=== PATIENT | female | born 1995 | race Two or more races ===

== ENCOUNTER 2019-05-17 15:57 | Emergency (ER) | payer MEDICAID ==
[~2019-05-17] VITALS: Ht 162.6 cm; Wt 79.8 kg
[2019-05-17 16:18] VITALS: BP 110/51
[2019-05-17 16:48] LABS: Basophils # (auto) 0.1 uL; Basophils % (auto) 0.5 % (0.0-2.0); Eosinophils # (auto) 0.1 uL; Eosinophils % (auto) 0.8 % (0.0-7.0); Hematocrit 42.9 % (36.0-46.0); Hemoglobin 14.5 g/dL (12.2-16.2); Lymphocytes # (auto) 3.1 uL; Lymphocytes % (auto) 31.3 % (10.0-50.0); Mean Corpuscular Hemoglobin 31.9 pg (28.0-32.0); Mean Corpuscular Hgb Conc. 33.8 g/dL (32.0-36.0); Mean Corpuscular Volume 94.3 fL (80.0-100.0); Monocytes # (auto) 0.5 uL; Monocytes % (auto) 5.4 % (0.0-12.0); Neutrophils # (auto) 6.2 uL; Nucleated Red Blood Cells % 0.1 %; Platelet Count (auto) 286 10^3/uL (140-450); Red Blood Cells 4.55 10^6/uL (4.0-5.20); Red Cell Distribution Width 13.7 % (11.8-14.3)
[2019-05-17 17:08] LABS: Alanine Aminotransferase 19 U/L (13-56); Albumin 3.7 g/dL (3.4-5.0); Anion Gap 6 (5-15); Aspartate Aminotransferase 13 U/L (15-37); BUN/Creatinine Ratio 16.9; Blood Urea Nitrogen 12 mg/dL (7-18); Calcium 8.8 mg/dL (8.5-10.1); Carbon Dioxide 26 mmol/L (21-32); Chloride 108 mmol/L (98-107); GFR African American 130 mL/min; GFR Non-African American 107 mL/min; Glucose 97 mg/dL (74-106); Potassium 3.8 mmol/L (3.5-5.1); Sodium 140 mmol/L (136-145)
[2019-05-17 17:12] LABS: Alkaline Phosphatase 74 U/L (45-117); Bilirubin, Total 0.2 mg/dL (0.2-1.0); Total Protein 7.7 g/dL (6.4-8.2)
== END 2019-05-17 19:21 | disposition home or self-care (01) ==
LOC: ER 16:09
DX: N61.1 Abscess of the breast and nipple (principal)
CPT/HCPCS: 36415; 80053; 84484; 85025; 93005

== ENCOUNTER 2020-11-03 12:14 | Emergency (ER) | payer MEDICAID ==
[~2020-11-03] VITALS: Ht 157.5 cm; Wt 81.6 kg
[2020-11-03 12:30] VITALS: BP 118/53
== END 2020-11-03 15:00 | disposition left against medical advice (07) ==
LOC: ER 12:14
DX: S61.511A Laceration without foreign body of right wrist, initial encounter (principal); Z53.21 Procedure and treatment not carried out due to patient leaving prior to being seen by health care provider; W26.9XXA Contact with unspecified sharp object(s), initial encounter; Y93.89 Activity, other specified; Y92.89 Other specified places as the place of occurrence of the external cause; Y99.8 Other external cause status

== ENCOUNTER 2021-03-25 20:56 | Emergency (ER) | payer MEDICAID ==
[~2021-03-25] VITALS: Ht 165.1 cm; Wt 72.6 kg
[2021-03-25 21:24] VITALS: BP 138/70
== END 2021-03-26 00:48 | disposition left against medical advice (07) ==
LOC: ER 20:56 → EDBD 20:56 → ER 03-26 00:42
DX: M54.2 Cervicalgia (principal); M54.50 Low back pain, unspecified; M25.512 Pain in left shoulder; M25.532 Pain in left wrist; Z53.21 Procedure and treatment not carried out due to patient leaving prior to being seen by health care provider; V49.9XXA Car occupant (driver) (passenger) injured in unspecified traffic accident, initial encounter; Y93.89 Activity, other specified; Y92.89 Other specified places as the place of occurrence of the external cause; Y99.8 Other external cause status
CPT/HCPCS: 72125; 72131; 73030; 73110

== ENCOUNTER 2025-03-20 16:26 | Observation (INO) | payer MEDICAID ==
[~2025-03-20] VITALS: Ht 162.6 cm; Wt 98.4 kg
[2025-03-20] MEDS ORDERED: PREN-96 PO (16:48)
--- NOTE | 2025-03-20 18:05 | DVH ---
OB ULTRASOUND <14 WEEKS: HISTORY: cramping TECHNIQUE: Multiple real-time grayscale sonographic images of the pelvis with duplex Doppler color f low, spectral and M-mode analysis. TRANSDUCERS: Transabdominal FINDINGS: The cervix 3.3 cm heart rate detected at 127 beats per minute. Amniotic fluid 15.91 cm Placenta anterior no placenta previa or abruption presentation cephalic IMPRESSION: 1. Cervix 3.3 cm in length and closed. 2. FHR: 127 bpm 3. presentation cephalic 4. Placenta anterior and there is no findings of abruption or placenta previa 5. Good movement No acute abnormality detected.
[2025-03-20 18:10] LABS: Urine Protein, UAD TRACE (Negative)
[2025-03-20 18:20] LABS: Vaginal Bacteria Few; Vaginal Clue Cells None Seen; Vaginal Epithelial Cells Moderate; Vaginal Trichomonas Not Present
[2025-03-20] MEDS: TERBUTALINE SULFATE 1 MG/ML 1ML VIAL SC PRN (18:33)
[2025-03-20] MEDS: LACTATED RINGER'S 1,000 ML IV ONE (18:33)
--- NOTE | 2025-03-20 19:37 | DVHDS2 ---
Physician Discharge Progress N Final Diagnosis: PTL Secondary Diagnosis: GDM, A1 Operations or Procedures: Operations or Procedures S: 29yo IUP@35.5wks presents to OB triage with c/o UCs and vaginal irritation. Denies UTI s/sx. Denies LOF/VB/BELL/vision changes/RUQ pain. Endorses +FM. PNC with Dr. Figueroa at [facility]. PNC complicated by GDM, A1. PMH denies PSH denies O: VSS NST reactive TOCO: regular UCs initially then after treatment no UCs, pt denies feeling UCs Treated with 1L LR IV bolus, terbutaline SQ x2 doses, procardia 10mg PO once Betamethasone IM given SVE by RN: 0/0/-3 Urine culture collected Laboratory Tests Test 03/20/25 17:00 03/20/25 17:10 03/20/25 18:43 Range/Units Urine Color Yellow Yellow Urine Clarity Turbid H Clear Urine pH 7.0 5.0-9.0 Urine Specific [place] 1.024 1.001-1.035 Urine Protein Trace H Negative Urine Ketones Negative Negative Urine Blood Negative Negative /uL Urine Nitrite Negative Negative Urine Bilirubin Negative Negative Urine Urobilinogen Normal Negative mg/dL Urine Leukocyte Esterase 1+ Negative /uL Urine RBC 8 0 - 4 /hpf Urine Microscopic WBC 7 H 0-5 /HPF Urine Squamous Epithelial Cells Few <5 /hpf Urine Bacteria Few H None Seen /hpf Urine Mucus Few None Seen Urine Glucose Normal Normal mg/dL Vaginal WBC (Wet Prep) Few Vaginal RBC (Wet Prep) Rare Vaginal Epithelial Cells (Wet Prep) Moderate Vaginal Bacteria (Wet Prep) Few Vaginal Trichomonas (Wet Prep) Not present Vaginal Yeast (Wet Prep) None seen Vaginal Clue Cells (Wet Prep) None seen POC Glucose 97 70-106 mg/dl Vital Signs Date Time Temp Pulse Resp B/P (MAP) Pulse Ox O2 Delivery O2 Flow Rate FiO2 03/20/25 19:50 120/64 A: 29yo IUP@35.5wks PTL GDM, A1 P: D/C home FKC/PTL/PreE precautions reviewed f/u in 1 day for second dose of betamethasone Dr. Figueroa consulted, agrees with POC. Other Interventions Other Interventions [facility] [id number] [place] [id number] Ph: [phone] DIAGNOSTIC IMAGING Diagnostic Imaging Report : [id number] Signed PATIENT: BETTE TREJO ACCT: [id number] UNIT: [id number] : 1995 LOC: [facility] ROOM / BED: TRIAGE1 / A AGE / SEX: 29 / F ADM STATUS: ADM IN SERVICE 57 ORDERING PHYSICIAN: MARQUITA FRANKLIN CNM PROCEDURE(s): OBLTD - OBSTERICAL LIMITED REASON: cramping ORDER NUMBER(s): [id number], ACCESSION NUMBER(s): [id number] OB ULTRASOUND <14 WEEKS: HISTORY: cramping TECHNIQUE: Multiple real-time grayscale sonographic images of the pelvis with duplex Doppler color flow, spectral and M-mode analysis. TRANSDUCERS: Transabdominal FINDINGS: The cervix 3.3 cm heart rate detected at 127 beats per minute. Amniotic fluid 15.91 cm Placenta anterior no placenta previa or abruption presentation cephalic IMPRESSION: 1. Cervix 3.3 cm in length and closed. 2. FHR: 127 bpm 3. presentation cephalic 4. Placenta anterior and there is no findings of abruption or placenta previa 5. Good movement No acute abnormality detected. ATED BY: RUBEN KUO Jr., DO DICTATED DATE/TIME: 03/20/251802 SIGNED BY: RUBEN KUO Jr., SIGNED DATE/TIME: 03/20/251802 CC: Condition on Discharge: Stable Disposition: Home Discharge Instructions: Diet: Consistent carbohydrate Activity: No Restrictions, As Tolerated Medications: see med list Follow Up Care: Specialist: f/u in 1 day for second dose of betamethasone and NST/BPP then weekly for GDM,A1 testing Discharge Statement: "Patient was advised to return to the ER or call 911 if any headaches, dizziness, shortness of breath, chest pain, abdominal pain, bleeding, fevers, or worsening of medical condition. Patient was counseled about treatment plan, medications, possible side effects, patientverbalized understanding. All questions were answered to the best of my ability. This discharge took greater then 30 minutes in planning, reviewing documentation, counseling the patient, and discussing with other team members." Visit Coding OBGYN Date of Service: Mar 20, 2025 Billing Provider: MARQUITA FRANKLIN CNM ORGANIZATIONAL DEVELOPMENT MANAGER Common Visit Codes: [id number]-[id number] OBS CARE (HIGH) ORGANIZATIONAL DEVELOPMENT MANAGER Procedure Codes: 41366-24- NON-STRESS TEST MARQUITA FRANKLIN CNM Mar 20, 2025 19:37
[2025-03-20] MEDS: NIFEdipine 10 MG CAP PO STA (19:50)
[2025-03-20] MEDS: BETAMETHASONE ACET (30mg/5ml) 5ml Vial 6mg/ml IM ONE (19:51)
== END 2025-03-20 20:09 | disposition home or self-care (01) ==
LOC: UNDOADMOB 16:26 → LDRP 16:26 → UNDODISOB 20:09
PROVIDERS: ADMIT Obstetrics & Gynecology; ATTEND Obstetrics & Gynecology
DX: O24.419 Gestational diabetes mellitus in pregnancy, unspecified control (principal); O60.03 Preterm labor without delivery, third trimester; Z3A.35 35 weeks gestation of pregnancy; Z98.890 Other specified postprocedural states; Z79.899 Other long term (current) drug therapy
CPT/HCPCS: 76815; 81001; 81002; 82948; 82962; 87086; 87210; 94760; 96360; 96361; 96372; G0378; J0702; J3105

== ENCOUNTER 2025-03-21 19:18 | Observation (INO) | payer MEDICAID ==
[~2025-03-21] VITALS: Ht 162.6 cm; Wt 99.8 kg
[~2025-03-21 19:18] MED LIST: PREN-96 PO
--- NOTE | 2025-03-21 20:11 | DVH ---
BIOPHYSICAL PROFILE HISTORY: GDMA1 TECHNIQUE: Multiple transabdominal real-time grayscale sonographic images through the gravid uterus of the fetus with duplex Doppler color flow and M-mode spectral analysis FINDINGS: BIOPHYSICAL PROFILE: breathing score: 2 movement score: 2 tone score: 2 Quantitative RENE score: 2 (RENE: 12.4 Cm.) Total score: 8/8 The cervix obscured by head Single live fetus in 35 weeks 6 days. heart rate 154 beats per minute. Anterior Grade 2-3 placenta without previa or abruption Single live fetus at 35 weeks 6 days Biophysical profile score 8/8 corresponding to an MARINE of 04/19/2025. IMPRESSION: 1. Biophysical profile score: 8/8 2. No other measurements received.
[2025-03-21] MEDS: BETAMETHASONE ACET (30mg/5ml) 5ml Vial 6mg/ml IM ONE (20:37)
--- NOTE | 2025-03-21 20:59 | DVHDS2 ---
Physician Discharge Progress N Final Diagnosis: IUP at 35w6d 2nd dose of betamethasone. BPP/NST Operations or Procedures: Operations or Procedures SUBJECTIVE Gloria Basurto is a 29 yo with IUP at 35w6d presenting for second dose of betamethasone and repeat NST/BPP Denies feeling UCs, vaginal bleeding, or leaking fluid. Endorses positive movement. EDC: 04/19/25 LMP: 07/23/24 Ob Hx: care with ELIZABETH Herrera. GDMA1. Taking fasting blood sugars. All have been between 75-84 per patient Review of Systems: Neuro: No complaints Heart: No complaints Lungs: No complaints GI: No complaints : No complaints Skin: No complaints Extremities: No complaints OBJECTIVE VSS FHR: Baseline: 130 Variability: Moderate Accelerations: Present Decelerations: Absent Category: 1 UCs: 2x. Palpated mild and patient did not feel Neuro: A&O x4. No apparent distress. Affect appropriate Heart: Regular rate and rhythm Lungs: Clear bilaterally GI: Gravid. No tenderness Skin: Dry and intact. No rashes or lesions BPP: 01/11 bedside accucheck: 109 ASSESSMENT 29 yo at 35w6d Category 1 Tracing PLAN -Patient given second dose of betamethasone per Dr. Figueroa -Discussed GDMA1 lifestyle, importance of adherence, and encouraged patient to continue taking blood sugar and eating appropriately -Patient missed appointment today 03/21, but rescheduled to 03/25. Encouraged patient to keep appointments. -Discussed labor precautions and kick counts. Answered all patient questions and concerns. Patient verbalizes understanding. Other Interventions Other Interventions BIOPHYSICAL PROFILE HISTORY: GDMA1 TECHNIQUE: Multiple transabdominal real-time grayscale sonographic images through the gravid uterus of the fetus with duplex Doppler color flow and M-mode spectral analysis FINDINGS: BIOPHYSICAL PROFILE: breathing score: 2 movement score: 2 tone score: 2 Quantitative RENE score: 2 (RENE: 12.4 Cm.) Total score: 8/8 The cervix obscured by head Single live fetus in 35 weeks 6 days. heart rate 154 beats per minute. Anterior Grade 2-3 placenta without previa or abruption Single live fetus at 35 weeks 6 days Biophysical profile score 8/8 corresponding to an MARINE of 04/19/2025. IMPRESSION: 1. Biophysical profile score: 8/8 2. No other measurements received. Condition on Discharge: Good Disposition: Home Discharge Instructions: Diet: Regular Activity: No Restrictions, As Tolerated Medications: No change. See med list Follow Up Care: Specialist: appointment on 03/25 Discharge Statement: "Patient was advised to return to the ER or call 911 if any headaches, dizziness, shortness of breath, chest pain, abdominal pain, bleeding, fevers, or worsening of medical condition. Patient was counseled about treatment plan, medications, possible side effects, patientverbalized understanding. All questions were answered to the best of my ability. This discharge took greater then 30 minutes in planning, reviewing documentation, counseling the patient, and discussing with other team members." Visit Coding OBGYN Date of Service: Mar 21, 2025 Billing Provider: NAV CARMONA CNM RADIO MAINTAINER Common Visit Codes: [id number] INP/OBS CARE (HIGH) RADIO MAINTAINER Procedure Codes: 86707-39- NON-STRESS TEST NAV CARMONA CNM Mar 21, 2025 20:59
== END 2025-03-21 21:01 | disposition home or self-care (01) ==
LOC: LDRP 19:18
PROVIDERS: ADMIT Obstetrics & Gynecology; ATTEND Obstetrics & Gynecology
DX: O24.419 Gestational diabetes mellitus in pregnancy, unspecified control (principal); Z3A.35 35 weeks gestation of pregnancy; Z79.899 Other long term (current) drug therapy; Z98.890 Other specified postprocedural states
CPT/HCPCS: 59025; 76819; 81002; 82962; 94760; 96372; G0378

== ENCOUNTER 2025-03-28 06:36 | Observation (INO) | payer MEDICAID ==
--- NOTE | 2025-03-28 11:37 | DVH ---
BIOPHYSICAL PROFILE HISTORY: GDMA1 TECHNIQUE: Multiple transabdominal real-time grayscale sonographic images through the gravid uterus of the fetus with duplex Doppler color flow and M-mode spectral analysis FINDINGS: BIOPHYSICAL PROFILE: breathing score: 2 movement score: 2 tone score: 2 Quantitative RENE score: 2 (RENE: 18.7 Cm, MVP: 6.3) Total score: 8/8 The cervix obscured by head Single live fetus in cephalic presentation. heart rate 133 beats per minute. Anterior Grade 2 placenta without previa or abruption Single live fetus at 36 weeks 6 days Biophysical profile score 8/8 corresponding to an MARINE of 04/19/2025. IMPRESSION: 1. Biophysical profile score: 8/8 2. FHR: 133 bpm
--- NOTE | 2025-03-29 08:27 | DVHDS2 ---
Physician Discharge Progress N Final Diagnosis: GDMA1 36wks Operations or Procedures: Operations or Procedures nst reactive reviwed,sono Condition on Discharge: Good Disposition: Home Discharge Instructions: Diet: Consistent carbohydrate Activity: No Restrictions, As Tolerated Follow Up/Referral: NST/BPP 1xwk Medications: na Follow Up Care: Specialist: 3d Discharge Statement: "Patient was advised to return to the ER or call 911 if any headaches, dizziness, shortness of breath, chest pain, abdominal pain, bleeding, fevers, or worsening of medical condition. Patient was counseled about treatment plan, medications, possible side effects, patientverbalized understanding. All questions were answered to the best of my ability. This discharge took greater then 30 minutes in planning, reviewing documentation, counseling the patient, and discussing with other team members." Visit Coding OBGYN Date of Service: Mar 28, 2025 Billing Provider: JAYCEE GONZALEZ DO QUARTZ MINER BLASTING Common Visit Codes: [id number] INP/OBS CARE (HIGH) QUARTZ MINER BLASTING Procedure Codes: 16360-21- NON-STRESS TEST JAYCEE GONZALEZ DO Mar 29, 2025 08:27
== END 2025-03-28 11:06 | disposition home or self-care (01) ==
LOC: LDRP 09:44 → UNDOADMOB 09:44 → LDRP 09:49
PROVIDERS: ADMIT Obstetrics & Gynecology; ATTEND Obstetrics & Gynecology
DX: O24.419 Gestational diabetes mellitus in pregnancy, unspecified control (principal); Z3A.36 36 weeks gestation of pregnancy; Z98.890 Other specified postprocedural states
CPT/HCPCS: 59025; 76819; 81002; 82962; 94760; G0378

== ENCOUNTER 2025-04-04 06:14 | Observation (INO) | payer MEDICAID ==
[~2025-04-04] VITALS: Ht 172.7 cm; Wt 79.4 kg
--- NOTE | 2025-04-04 10:55 | DVH ---
BIOPHYSICAL PROFILE HISTORY: GDMA1 TECHNIQUE: Multiple transabdominal real-time grayscale sonographic images through the gravid uterus of the fetus with duplex Doppler color flow and M-mode spectral analysis FINDINGS: BIOPHYSICAL PROFILE: breathing score: 2 movement score: 2 tone score: 2 Quantitative RENE score: 2 (RENE: 20.2 Cm, MVP: 7.5 cm) Total score: 8/8 The cervix obscured by head Single live fetus in vertex presentation. heart rate 132 beats per minute. Anterior Grade 2 placenta without previa or abruption Single live fetus at 37 weeks 6 days Biophysical profile score 8/8 corresponding to an MARINE of 04 19 2025 IMPRESSION: 1. Biophysical profile score: 8/8
--- NOTE | 2025-04-05 15:13 | DVHDS2 ---
Physician Discharge Progress N Final Diagnosis: IUP at 37.6wks and stable GDM Operations or Procedures: Operations or Procedures NST REACTIVE REVIWED,SONO Condition on Discharge: Good Disposition: Home Discharge Instructions: Diet: Consistent carbohydrate Activity: Light activity Medications: NA Follow Up Care: Specialist: 1W Discharge Statement: "Patient was advised to return to the ER or call 911 if any headaches, dizziness, shortness of breath, chest pain, abdominal pain, bleeding, fevers, or worsening of medical condition. Patient was counseled about treatment plan, medications, possible side effects, patientverbalized understanding. All questions were answered to the best of my ability. This discharge took greater then 30 minutes in planning, reviewing documentation, counseling the patient, and discussing with other team members." Visit Coding OBGYN Date of Service: Apr 04, 2025 Billing Provider: JAYCEE GONZALEZ DO FIELD MAP TECHNICIAN Common Visit Codes: 40700-[id number] OBS CARE (HIGH) FIELD MAP TECHNICIAN Procedure Codes: 28513-34- NON-STRESS TEST JAYCEE GONZALEZ DO Apr 05, 2025 15:13
== END 2025-04-04 11:19 | disposition home or self-care (01) ==
LOC: LDRP 09:44
PROVIDERS: ADMIT Obstetrics & Gynecology; ATTEND Obstetrics & Gynecology
DX: O24.419 Gestational diabetes mellitus in pregnancy, unspecified control (principal); Z3A.37 37 weeks gestation of pregnancy; Z98.890 Other specified postprocedural states
CPT/HCPCS: 59025; 76819; 81002; 82948; 82962; 94760; G0378; 96372

== ENCOUNTER 2025-04-05 06:07 | Observation (INO) | payer MEDICAID ==
[~2025-04-05] VITALS: Ht 167.6 cm; Wt 83.9 kg
--- NOTE | 2025-04-05 11:41 | DVHDS2 ---
Physician Discharge Progress N Final Diagnosis: 37wks gdma1 Operations or Procedures: Operations or Procedures nst reactive reviwed,sono Condition on Discharge: Good Disposition: Home Discharge Instructions: Diet: Consistent carbohydrate Activity: No Restrictions, As Tolerated Medications: na Follow Up Care: Specialist: 4d Discharge Statement: "Patient was advised to return to the ER or call 911 if any headaches, dizziness, shortness of breath, chest pain, abdominal pain, bleeding, fevers, or worsening of medical condition. Patient was counseled about treatment plan, medications, possible side effects, patientverbalized understanding. All questions were answered to the best of my ability. This discharge took greater then 30 minutes in planning, reviewing documentation, counseling the patient, and discussing with other team members." Visit Coding OBGYN Date of Service: Apr 04, 2025 Billing Provider: JAYCEE GONZALEZ DO DEALMAKER Common Visit Codes: [id number] INP/OBS CARE (HIGH) DEALMAKER Procedure Codes: 88962-90- NON-STRESS TEST JAYCEE GONZALEZ DO Apr 05, 2025 08:53
--- NOTE | 2025-04-11 12:08 | DVH ---
BIOPHYSICAL PROFILE HISTORY: GDMA1 Comparison Study: US BIOPHYSICAL PROFILE on DOS: 04/04/25, US BIOPHYSICAL PROFILE on DOS: 03/28/25, US BIOPHYSICAL PROFILE on DOS: 03/21/25, US OBSTERICAL LIMITED on DOS: 03/20/25 TECHNIQUE: Multiple real-time grayscale sonographic images through the gravid uterus of the fetus with duplex Doppler color flow and M-mode spectral analysis FINDINGS: BIOPHYSICAL PROFILE: breathing score: 2 movement score: 2 tone score: 2 Quantitative RENE score: 2 (RENE: 13.39 Cm.) Total score: 8 The cervix is not visualized Single live fetus in cephalic presentation. heart rate 133 beats per minute. Grade 2, anterior placenta without previa or abruption IMPRESSION: Biophysical profile score: 8
== END 2025-04-11 12:42 | disposition home or self-care (01) ==
LOC: LDRP 04-11 10:35
PROVIDERS: ADMIT Obstetrics & Gynecology; ATTEND Obstetrics & Gynecology
DX: O24.419 Gestational diabetes mellitus in pregnancy, unspecified control (principal); Z3A.37 37 weeks gestation of pregnancy; Z98.890 Other specified postprocedural states; Z79.899 Other long term (current) drug therapy
CPT/HCPCS: 59025; 76819; 81002; 82948; 94760; G0378

== ENCOUNTER 2025-04-06 00:08 | Observation (INO) | payer MEDICAID ==
--- NOTE | 2025-04-06 01:34 | DVHDS2 ---
Physician Discharge Progress N Final Diagnosis: Latent labor Operations or Procedures: Operations or Procedures 29y/o IUP @ 38.1w STEPHANI presents with complaints of contractions rating 7/10 that started two days ago. They have been inconsistent but at most 10 in an hour. She is talking through contractions. Denies LOF, VB, BELL, Vision changes, RUQ pain, Reports +FM. PNC: with Dr. Figueroa at [facility], complicated by GDMA1. EDC: 04/19/2025 PMH: Denies PSH: Benign breast masses removed x4. Social: Denies Tobacco, drug, alcohol. Feel safe at home. O: VSS: See CPN Bedside blood glucose: 89 FHR: Baseline: 130 Variability: Moderate Accelerations: Present Decelerations: Absent Category: 1 UCs: Q2-3min, 80 second duration Neuro: A&O x4. No apparent distress. Affect appropriate Heart: Regular rate and rhythm Lungs: Clear bilaterally GI: Gravid. No tenderness : SVE /, performed by RN Skin: Dry and intact. No rashes or lesions Extremities: Cap refill WNL. No Edema. A: 29y/o IUP @ 38.1w EGA Latent Labor Category 1 tracing P: Discharge home with instructions to RTH when labor progresses. Keep scheduled appointments in clinic and for testing in [facility] on 04/11/25. Labor precautions and FKC discussed. All questions and concerns addressed. Patient verbalizes understanding and agrees with POC. Condition on Discharge: Stable Disposition: Home Discharge Instructions: Diet: Regular Activity: No Restrictions, As Tolerated Medications: See med list Follow Up Care: Discharge Statement: "Patient was advised to return to the ER or call 911 if any headaches, dizziness, shortness of breath, chest pain, abdominal pain, bleeding, fevers, or worsening of medical condition. Patient was counseled about treatment plan, medications, possible side effects, patientverbalized understanding. All questions were answered to the best of my ability. This discharge took greater then 30 minutes in planning, reviewing documentation, counseling the patient, and discussing with other team members." Visit Coding OBGYN Date of Service: Apr 06, 2025 Billing Provider: NAV CARMONA CNM REGULATORY AND COMPLIANCE TECHNICIAN Common Visit Codes: [id number] OBS CARE (MOD) REGULATORY AND COMPLIANCE TECHNICIAN Procedure Codes: 71483-13- NON-STRESS TEST NAV CARMONA [facility] Apr 06, 2025 01:34
== END 2025-04-06 01:14 | disposition home or self-care (01) ==
LOC: LDRP 00:08
PROVIDERS: ADMIT Obstetrics & Gynecology; ATTEND Obstetrics & Gynecology
DX: O24.419 Gestational diabetes mellitus in pregnancy, unspecified control (principal); O62.9 Abnormality of forces of labor, unspecified; Z3A.38 38 weeks gestation of pregnancy; Z98.890 Other specified postprocedural states
CPT/HCPCS: 59025; 81002; 82948; 82962; G0378

== ENCOUNTER 2025-04-16 05:53 | Inpatient (IN) | payer MEDICAID ==
[~2025-04-16] VITALS: Ht 162.6 cm; Wt 100.7 kg
[2025-04-16] MEDS ORDERED: LIDOCAINE 2%HCL (LOCAL ANESTH.) INJ 20ML MDV IJ PRN (08:15)
[2025-04-16] MEDS: LACT. RINGERS/OXYTOCIN 20UNITS 500 ML IV ONE ×2 (08:45→19:30)
[2025-04-16 09:05] LABS: Hematocrit 35.5 % (36.0-46.0); Hemoglobin 12.1 g/dL (12.2-16.2); Mean Corpuscular Hemoglobin 30.8 pg (28.0-32.0); Mean Corpuscular Volume 90.6 fL (80.0-100.0); Nucleated Red Blood Cells % 0.0 %
[2025-04-16 09:13] LABS: Urine Protein, UAD 1+ (Negative)
[2025-04-16 09:19] LABS: Amphetamine Screen, Urine Neg (NEGATIVE); Barbiturate Scree,Urine Neg (NEGATIVE); Benzodiazephine Screen, Urine Neg (NEGATIVE); Cannabinoid Screen, Urine Neg (NEGATIVE); Cocaine Screen, Urine Neg (NEGATIVE); Opiate Scree,Urine Neg (NEGATIVE); Phencyclidine Screen, Urine Neg (NEGATIVE)
[2025-04-16 09:21] LABS: Alanine Aminotransferase < 9 U/L (7-40); Albumin 3.7 g/dL (3.2-4.8); Alkaline Phosphatase 184 U/L (46-116); Anion Gap 13 (5-15); BUN/Creatinine Ratio 11.1 (10.0-20.0); Bilirubin, Total 0.3 mg/dL (0.2-1.0); Blood Urea Nitrogen 7 mg/dL (9-23); Calcium 9.3 mg/dL (8.7-10.4); Carbon Dioxide 21 mmol/L (20-31); Chloride 106 mmol/L (98-107); Glucose 88 mg/dL (74-106); Potassium 3.9 mmol/L (3.5-5.1); Sodium 140 mmol/L (136-145); Total Protein 6.4 g/dL (5.7-8.2)
[2025-04-16 09:23] LABS: INR 0.91 (0.9-1.15); Partial Thromboplastin Time 29.6 SEC (24.5-34.5); Prothrombin Time 9.7 sec (9.3-11.8)
[2025-04-16] MEDS: LACTATED RINGER'S 1,000 ML IV SCH (10:20)
--- NOTE | 2025-04-16 12:49 | DVHHP2 ---
OB CC & HPI Date Date of Admission: Apr 16, 2025 Patient Identification: : 1 Para: 0 EDC: Apr 19, 2025 EGA: 39.4 Chief Complaints: Reason for admission: induction of labor (GDMA1) Indication for induction: medical complication History of Present Complaints 29yo IUP@39.4wks presents for scheduled IOL for GDMA1. Denies LOF/VB/BELL/vision changes/RUQ pain. Endorses +FM. PNC: Routine PNC at [facility], adequate visits, PNC complicated by GDMA1. Dating based on LMP c/w 1st trimester sono, GBS negative. OB hx: Denies PMH: None PSH: Multiple small breast nodules removed, benign in 2018 and 2019 Social: Denies Drug use, alcohol, smoking or STI history Past Medical History Cardiac: No pertinent Hx Pulmonary: No pertinent Hx Central Nervous System: No pertinent Hx GI: No pertinent Hx Hemotology/Oncology: No pertinent Hx Hepatobiliary: No pertinent Hx Psychiatric: No pertinent Hx Musculoskeletal: No pertinent Hx Rheumotologic: No pertinent Hx Infectious Disease: No peritnent Hx ENT: No pertinent Hx Renal/: No pertinent Hx Endocrine: No pertinent Hx Dermatology: No pertinent Hx Past Surgical History: Other (Multiple breast nodules removed, benign in 2018 and 2019) OB History OB History Care: [facility] Ultrasounds: Normal mid trimester US Obstetrical Complications: Gestational Diabetes (A1) Medical Complications: None Allergies: Coded Allergies: NO KNOWN ALLERGIES (Unverified , 12/17/17) Home Meds Reported Medications Vit W/ Ferrous Fumara ( One Daily) Daily Tab, 1 TAB PO DAILY, #90 TAB 3 Refills 03/20/25 Current Medications Current Medications Medications (Trade) Dose Ordered Sig/Brissa Route PRN Reason Start Time Stop Time Status Last Admin Lactated Ringer's 1,000 ml @ 125 mls/hr Q8H IV 04/16/25 08:15 04/16/25 10:20 [place] Tamy (Tucks) 1 pad PRN PRN TOP PERINEAL AREA DISCOMFORT 04/16/25 08:15 Sodium Lauryl Sulfate (Phisoderm) 240 ml PRN PRN TOP PERINEAL AREA DISCOMFORT 04/16/25 08:15 Benzocaine (Dermoplast) 1 applic PRN PRN TOP PERINEAL AREA DISCOMFORT 04/16/25 08:15 Misoprostol (Cytotec) 50 mcg Q4HPRN PRN PO CERVICAL RIPENING 04/16/25 08:15 04/16/25 10:16 Lidocaine HCl (Xylocaine) 20 ml ONCE PRN IJ PERINEAL AREA DISCOMFORT 04/16/25 08:15 Family & Social History Family/Social History Past Family/Social History: Denies Blood Type: AB+ Rubella: immune RPR/VDRL: Negative GBS Status: Negative HBsAG: Negative Review of Systems Constitutional: No symptom reported Ears, Nose, & Throat: No symptom reported Eyes: No symptom reported Pulmonary/Respiratory: No symptom reported Cardiovascular: No symptom reported Gastrointestinal: No symptom reported Genitourinary: No symptom reported Musculoskeletal: No symptom reported Skin: No symptom reported Psychiatric: No symptom reported Endocrine: No symptom reported Hemotologic/Lymphatic: No symptom reported OB Admission Exam Physical Exam Vitals: O: VSS EFW - 8lb0oz, vertex on 04/11/25 in office HEENT: TMs Normal, Fontanelles Normal, Nasal Mucosa Normal, Eyes non-injected, Oropharynx Normal, PERRLA, Moist Membranes, EOMI Heart: Rhythm Normal Lungs: Clear Abdomen: Gravid Extremities: Normal Reflexes: Normal Pelvic Exam: SVE by RN: external os 2cm, internal closed/50/-2 Membranes: Intact Heart Rate: 120's Accelerations: Accelerations Present Decelerations: No Decelerations Halfway Variability: Average (6-25) Frequency of Contractions: irregular Intensity: Mild OB Plan Plan Admitting Diagnosis: Induction of Labor for GDM, A1 Plan: Induction Induction Methd: Misoprostol protocol Other Plan: A: 29yo IUP@39.4wks Induction of Labor for GDM, A1 Category I EFM Intact Membranes GBS negative P: Admit to L&D Informed consent obtained Discussed risks, benefits, alternatives of IOL for GDMA1 with pt. Pt consents to IOL with PO cytotec. monitoring per order Bedside blood glucose Q4H, then Q2H in active labor Routine labs ordered Pain mgmt PRN Frequent position changes in and out of bed encouraged Limit SVE unless necessary Intrauterine resuscitation PRN Anticipate CNM will consult with Dr. Figueroa PRN Visit Coding OBGYN Date of Service: Apr 16, 2025 Billing Provider: MARQUITA FRANKLIN CNM AUTHORIZATION REPRESENTATIVE Common Visit Codes: [id number] INP/OBS CARE (HIGH) AUTHORIZATION REPRESENTATIVE Procedure Codes: 14893-84- NON-STRESS TEST MARQUITA FRANKLIN CNM Apr 16, 2025 12:49
--- NOTE | 2025-04-16 19:49 | DVHPN2 ---
CNM Labor Progress Note Date and Time Seen Date Seen: Apr 16, 2025 Time Seen: 19:09 Subjective Subjective Comment Patient agreed to grant balloon after discussion of benefits, reports increased cramping. Objective Vital Signs VS stable see CPN Monitoring Method Monitoring Method: External Heart Rate Heart Rate Baseline: 130 Heart Rate Variability: Moderate Presence of FHR Accelerations: Yes Presence of FHR Decelerations: No Heart Rate Type of Decel: Variable Decelerations Are all 5 Components of the FH: Yes Contractions Contractions Frequency: Occasional Duration of Contraction: 150 Contractions Intensity: Moderate Contractions Resting Tone: Relaxed Membranes Membranes: Intact Vaginal Exam Vag Exam Deferred: No (Grant balloon iserted with 35ml saline) Vaginal Exam Dilation: 3 Vaginal Exam Effacement: 60 Vaginal Exam Presentation: VTX Vaginal Exam Show: Small Medications Medications - Pitocin: No Medication - Epidural: No Medication - Other 3 doses of cytotec PO Lab Results Lab Results Current Medications Medications (Trade) Dose Ordered Sig/Brissa Start Time Stop Time Status Last Admin Dose Admin Lactated Ringer's 1,000 ml @ 125 mls/hr Q8H 04/16/25 08:15 04/16/25 15:55 125 MLS/HR Witch Tamy (Tucks) 1 pad PRN PRN 04/16/25 08:15 Sodium Lauryl Sulfate (Phisoderm) 240 ml PRN PRN 04/16/25 08:15 Benzocaine (Dermoplast) 1 applic PRN PRN 04/16/25 08:15 Misoprostol (Cytotec) 50 mcg Q4HPRN PRN 04/16/25 08:15 04/16/25 18:34 50 MCG Lidocaine HCl (Xylocaine) 20 ml ONCE PRN 04/16/25 08:15 Oxytocin 500 ml @ 999 mls/hr Q31M ONCE 04/16/25 08:15 04/16/25 09:07 DC Oxytocin 500 ml @ 125 mls/hr Q4H ONCE 04/16/25 08:45 04/16/25 12:44 DC Laboratory Tests Test 04/16/25 16:22 04/16/25 08:28 04/16/25 08:20 Range/Units POC Glucose 83 70-106 mg/dl White Blood Count 8.7 4.4-10.8 10^3/uL Red Blood Count 3.92 L 4.0-5.20 10^6/uL Hemoglobin 12.1 L 12.2-16.2 g/dL Hematocrit 35.5 L 36.0-46.0 % Mean Corpuscular Volume 90.6 80.0-100.0 fL Mean Corpuscular Hemoglobin 30.8 28.0-32.0 pg Mean Corpuscular Hemoglobin Concent 34.0 32.0-36.0 g/dL Red Cell Distribution Width 15.8 H 11.8-14.3 % Platelet Count 270 140-450 10^3/uL Mean Platelet Volume 8.6 6.9-10.8 fL Neutrophils (%) (Auto) 72.4 37.0-80.0 % Lymphocytes (%) (Auto) 22.1 10.0-50.0 % Monocytes (%) (Auto) 4.9 0.0-12.0 % Eosinophils (%) (Auto) 0.4 0.0-7.0 % Basophils (%) (Auto) 0.2 0.0-2.0 % Neutrophils # (Auto) 6.3 1.6-8.6 10 ^3/uL Lymphocytes # (Auto) 1.9 0.4-5.4 10 ^3/uL Monocytes # (Auto) 0.4 0-1.3 10 ^3/uL Eosinophils # (Auto) 0 0-0.8 10 ^3/uL Basophils # (Auto) 0 0-0.2 10 ^3/uL Nucleated Red Blood Cells 0.0 % Prothrombin Time 9.7 9.3-11.8 sec Prothrombin Time INR 0.91 0.9-1.15 Activated Partial Thromboplast Time 29.6 24.5-34.5 SEC Sodium Level 140 136-145 mmol/L Potassium Level 3.9 3.5-5.1 mmol/L Chloride Level 106 98-107 mmol/L Carbon Dioxide Level 21 20-31 mmol/L Anion Gap 13 5-15 Blood Urea Nitrogen 7 L 9-23 mg/dL Creatinine 0.63 0.550-1.02 mg/dL Glomerular Filtration Rate Calc 122 >90 mL/min BUN/Creatinine Ratio 11.1 10.0-20.0 Serum Glucose 88 74-106 mg/dL Calcium Level 9.3 8.7-10.4 mg/dL Total Bilirubin 0.3 0.2-1.0 mg/dL Aspartate Amino Transferase (AST) 15 13-40 U/L Alanine Aminotransferase (ALT) < 9 7-40 U/L Alkaline Phosphatase 184 H 46-116 U/L Total Protein 6.4 5.7-8.2 g/dL Albumin 3.7 3.2-4.8 g/dL Treponema pallidum Antibody Non-reactive Negative Urine Color Yellow Yellow Urine Clarity Turbid H Clear Urine pH 6.0 5.0-9.0 Urine Specific [place] 1.028 1.001-1.035 Urine Protein 1+ H Negative Urine Ketones Negative Negative Urine Blood Negative Negative /uL Urine Nitrite Negative Negative Urine Bilirubin Negative Negative Urine Urobilinogen Normal Negative mg/dL Urine Leukocyte Esterase 2+ Negative /uL Urine RBC 10 0 - 4 /hpf Urine Microscopic WBC 28 H 0-5 /HPF Urine Squamous Epithelial Cells Mod <5 /hpf Urine Bacteria Few H None Seen /hpf Urine Mucus Few None Seen Urine Glucose Normal Normal mg/dL Urine Opiates Screen Neg NEGATIVE Urine Fentanyl Screen Neg NEGATIVE Urine Barbiturates Screen Neg NEGATIVE Urine Phencyclidine Screen Neg NEGATIVE Urine Amphetamines Screen Neg NEGATIVE Urine Benzodiazepines Screen Neg NEGATIVE Urine Cocaine Screen Neg NEGATIVE Urine Cannabinoids Screen Neg NEGATIVE Assessment Assessment A:29yo IUP@39.4wks Induction of Labor GDM A1 Category II EFM Intact Membranes GBS negative Plan Plan RN to apply traction to grant balloon Q1 hour Plan to start IV pitocin 4 hours after last dose of cytotec monitoring per order Pain mgmt PRN Frequent position changes in and out of bed encouraged Limit SVE unless necessary Intrauterine resuscitation PRN Anticipate CNM will consult with Dr. Figueroa PRN Plan discussed with: Patient, Spouse Visit Coding OBGYN Date of Service: Apr 16, 2025 Billing Provider: MARQUITA FRANKLIN CNM FAMILY LAW PARALEGAL Common Visit Codes: [id number] INP/OBS CARE(HIGH) MICHELL AGUSTIN STUDENTMDW Apr 16, 2025 19:49
--- NOTE | 2025-04-16 21:05 | EPIDURAL ---
Anesthesia Procedural Note - Epidural Informed consent obtained?: Yes Medication Administered: Fentanyl 100 mcg Medication Administered: ePHEDrine 10 mg IV Spinal level of insertion: L3-L4 Test dose of lidocaine & Epine: Negative Infusion started: Yes Start time: 20:17 End time: 18:19 Procedure description Procedure description: 29 y/o 39 5/7 weeks AOG with history of GDM1, in active labor, desires PCEA for labor and delivery. Chart reviewed, H & P done, informed consent obtained, all questions answered and she wishes to proceed with PCEA. IVF bolus given. Positon sitting. Area prepped and draped. Lidocaine 1% for skin infiltration. Wtih Touhy G18 and loss of resistance technique, epidural space identified. catheter threaded and secured. Test dose negative x 2. Ropivacaine infusion started. Pain score improved from 7/10 to 1/10. Patient comfortable. Vital signs stable throughout. Stat C/section called for failed induction and chorioamnionitis. (See anesthesia record for further C/section details) Epidural catheter pulled with tip intact. No oozing, redness, or swelling around epidural area. Ms. Basurto is back to baseline, able to ambulate and guo with her son. Total epidural time: 2016 Total face to face time: 2016. LIYL LLOYD MD Apr 16, 2025 21:05
[2025-04-16] MEDS: fentaNYL CITRATE 100 MCG/2 ML VL IV ONE (21:34)
[2025-04-16] MEDS: ROPIVACAINE HCL 100 ML ONE (21:35)
[2025-04-16] MEDS ORDERED: TERBUTALINE SULFATE 1 MG/ML 1ML VIAL SC PRN (21:45)
[2025-04-16] MEDS: LACT. RINGERS/OXYTOCIN 20UNITS 1,000 ML IV SCH (23:07)
[2025-04-17] MEDS: ROPIVACAINE HCL 100 ML ONE ×3 (03:45→15:25)
--- NOTE | 2025-04-17 05:43 | DVHPN2 ---
Chief Complaints Patient reports: No new complaints Nursing reports: No new complaints Objective Vitals Vital Signs Date Time Temp Pulse Resp B/P (MAP) Pulse Ox O2 Delivery O2 Flow Rate FiO2 04/16/25 21:34 120/57 Medications Current Medications Medications (Trade) Dose Ordered Sig/Brissa Route PRN Reason Start Time Stop Time Status Last Admin Benzocaine (Dermoplast) 1 applic PRN PRN TOP PERINEAL AREA DISCOMFORT 04/16/25 08:15 Lactated Ringer's 1,000 ml @ 125 mls/hr Q8H IV 04/16/25 08:15 04/16/25 23:07 Lidocaine HCl (Xylocaine) 20 ml ONCE PRN IJ PERINEAL AREA DISCOMFORT 04/16/25 08:15 Misoprostol (Cytotec) 50 mcg Q4HPRN PRN PO CERVICAL RIPENING 04/16/25 08:15 04/16/25 18:34 Oxytocin 1,000 ml @ 6 ml/hr Q24H IV 04/16/25 21:45 04/16/25 23:07 Sodium Lauryl Sulfate (Phisoderm) 240 ml PRN PRN TOP PERINEAL AREA DISCOMFORT 04/16/25 08:15 Terbutaline Sulfate (Brethine Inj) 0.25 mg ONCE PRN SC Uterine tachysystole 04/16/25 21:45 Witch Tamy (Tucks) 1 pad PRN PRN TOP PERINEAL AREA DISCOMFORT 04/16/25 08:15 Others ve--6cm/60/-2 Studies Laboratory Tests 04/16/25 08:28 Test 04/16/25 08:28 Range/Units Serum Glucose 88 74-106 mg/dL Ass/Plan Assessment labor gdm Plan cont with pitocin Visit Coding OBGYN Date of Service: Apr 17, 2025 Billing Provider: JAYCEE GONZALEZ DO JOINERS SUPERVISOR Common Visit Codes: [id number] INP/OBS CARE (HIGH) JOINERS SUPERVISOR Procedure Codes: 52608-55- NON-STRESS TEST JAYCEE GONZALEZ DO Apr 17, 2025 05:43
--- NOTE | 2025-04-17 09:45 | DVHPN2 ---
Chief Complaints Patient reports: No new complaints Nursing reports: No new complaints Objective Vitals Vital Signs Date Time Temp Pulse Resp B/P (MAP) Pulse Ox O2 Delivery O2 Flow Rate FiO2 04/16/25 21:34 120/57 Medications Current Medications Medications (Trade) Dose Ordered Sig/Brissa Route PRN Reason Start Time Stop Time Status Last Admin Oxytocin 1,000 ml @ 6 ml/hr Q24H IV 04/16/25 21:45 04/16/25 23:07 Terbutaline Sulfate (Brethine Inj) 0.25 mg ONCE PRN SC Uterine tachysystole 04/16/25 21:45 Others ve-8cm/80/-1 Studies Laboratory Tests 04/16/25 08:28 Test 04/16/25 08:28 Range/Units Serum Glucose 88 74-106 mg/dL Ass/Plan Assessment labor gdm Plan cont with supportive crae Visit Coding OBGYN Date of Service: Apr 17, 2025 Billing Provider: JAYCEE GONZALEZ DO OIL TANKER CAPTAIN Common Visit Codes: [id number] OBS CARE (HIGH) OIL TANKER CAPTAIN Procedure Codes: 41570-00- NON-STRESS TEST JAYCEE GONZALEZ DO Apr 17, 2025 09:45
[2025-04-17] MEDS: ceFAZolin 1GM/50ML 50 ML IV SCH (12:28)
[2025-04-17] MEDS: PHISODERM TOP SOLN 240ML BTL TOP PRN (12:42)
[2025-04-17] MEDS: DERMOPLAST 60ML BOTTLE TOP PRN (12:42)
[2025-04-17] MEDS: WITCH HAZEL-GLYCERIN PAD TOP PRN (12:42)
--- NOTE | 2025-04-17 13:03 | DVHPN2 ---
Chief Complaints Patient reports: No new complaints Nursing reports: No new complaints Objective Vitals Vital Signs Date Time Temp Pulse Resp B/P (MAP) Pulse Ox O2 Delivery O2 Flow Rate FiO2 04/16/25 21:34 120/57 Medications Current Medications Medications (Trade) Dose Ordered Sig/Brissa Route PRN Reason Start Time Stop Time Status Last Admin Cefazolin Sodium 50 ml @ 100 mls/hr Q8H IV 04/17/25 12:30 04/17/25 12:28 Oxytocin 1,000 ml @ 6 ml/hr Q24H IV 04/16/25 21:45 04/16/25 23:07 Terbutaline Sulfate (Brethine Inj) 0.25 mg ONCE PRN SC Uterine tachysystole 04/16/25 21:45 Others ve-9.5cm/80/-1 Studies Laboratory Tests 04/16/25 08:28 Test 04/16/25 08:28 Range/Units Serum Glucose 88 74-106 mg/dL Ass/Plan Assessment labor gdm Plan supportive care Visit Coding OBGYN Date of Service: Apr 17, 2025 Billing Provider: JAYCEE GONZALEZ DO BONE PROCESS OPERATOR Common Visit Codes: [id number] OBS CARE (HIGH) BONE PROCESS OPERATOR Procedure Codes: 49350-13- NON-STRESS TEST JAYCEE GONZALEZ DO Apr 17, 2025 13:03
[2025-04-17] MEDS: diphenhydrAMINE HCL 50 MG/1 ML VL IV ONE (13:43)
--- NOTE | 2025-04-17 14:25 | DVHPN2 ---
Chief Complaints Patient reports: No new complaints Nursing reports: No new complaints Objective Vitals Vital Signs Date Time Temp Pulse Resp B/P (MAP) Pulse Ox O2 Delivery O2 Flow Rate FiO2 04/16/25 21:34 120/57 Medications Current Medications Medications (Trade) Dose Ordered Sig/Brissa Route PRN Reason Start Time Stop Time Status Last Admin Cefazolin Sodium 50 ml @ 100 mls/hr Q8H IV 04/17/25 12:30 04/17/25 12:28 Oxytocin 1,000 ml @ 6 ml/hr Q24H IV 04/16/25 21:45 04/16/25 23:07 Terbutaline Sulfate (Brethine Inj) 0.25 mg ONCE PRN SC Uterine tachysystole 04/16/25 21:45 Others ve-9.5cm/0/80 Studies Laboratory Tests 04/16/25 08:28 Test 04/16/25 08:28 Range/Units Serum Glucose 88 74-106 mg/dL Ass/Plan Assessment labor gdm Plan labor down and lay on right side to reduce cx Visit Coding OBGYN Date of Service: Apr 17, 2025 Billing Provider: JAYCEE GONZALEZ DO SPRAY BOOTH OPERATOR Common Visit Codes: [id number] OBS CARE (HIGH) SPRAY BOOTH OPERATOR Procedure Codes: 26226-89- NON-STRESS TEST JAYCEE GONZALEZ DO Apr 17, 2025 14:25
--- NOTE | 2025-04-17 14:27 | DVHPN2 ---
Chief Complaints Patient reports: No new complaints Nursing reports: No new complaints Objective Vitals Vital Signs Date Time Temp Pulse Resp B/P (MAP) Pulse Ox O2 Delivery O2 Flow Rate FiO2 04/16/25 21:34 120/57 Medications Current Medications Medications (Trade) Dose Ordered Sig/Brissa Route PRN Reason Start Time Stop Time Status Last Admin Cefazolin Sodium 50 ml @ 100 mls/hr Q8H IV 04/17/25 12:30 04/17/25 12:28 Oxytocin 1,000 ml @ 6 ml/hr Q24H IV 04/16/25 21:45 04/16/25 23:07 Terbutaline Sulfate (Brethine Inj) 0.25 mg ONCE PRN SC Uterine tachysystole 04/16/25 21:45 Others ve-9.5cm/80/0 cat one Studies Laboratory Tests 04/16/25 08:28 Test 04/16/25 08:28 Range/Units Serum Glucose 88 74-106 mg/dL Ass/Plan Assessment active labor gdm Plan possib of shoulder dystocia d/w pt ,pt fully understands . option of pcs d/w pt but pt wants to proceed with trial of vag del Visit Coding OBGYN Date of Service: Apr 17, 2025 Billing Provider: JAYCEE GONZALEZ DO GRAIN GRADER Common Visit Codes: [id number] OBS CARE (HIGH) GRAIN GRADER Procedure Codes: 86592-56- NON-STRESS TEST JAYCEE GONZALEZ DO Apr 17, 2025 14:27
--- NOTE | 2025-04-17 16:16 | DVHPN2 ---
CNM Labor Progress Note Date and Time Seen Date Seen: Apr 17, 2025 Time Seen: 15:30 Subjective Patient reports: Feels worse Subjective Comment Pts epidural is not working, waiting for anesthesia to come to bedside for bolus. Pt reports a lot of pain Objective Vital Signs VSS, see CPN Monitoring Method Monitoring Method: External Heart Rate Heart Rate Baseline: 145 Heart Rate Variability: Moderate Presence of FHR Accelerations: Yes Presence of FHR Decelerations: No Are all 5 Components of the FH: Yes Contractions Contractions Frequency: Other (q2-4min) Duration of Contraction: 100 Contractions Intensity: Moderate Contractions Resting Tone: Relaxed Membranes Membranes: Ruptured Amniotic Fluid Color: Clear Vaginal Exam Vag Exam Deferred: No Vaginal Exam Dilation: 8 Vaginal Exam Effacement: 90 Vaginal Exam Station: 0 Vaginal Exam Presentation: VTX Vaginal Exam Show: Moderate Medications Medications - Pitocin: Yes (20mu) Medication - Epidural: Yes Lab Results Lab Results Vital Signs Date Time Temp Pulse Resp B/P (MAP) Pulse Ox O2 Delivery O2 Flow Rate FiO2 04/17/25 16:36 100.7 04/16/25 21:34 120/57 Current Medications Medications (Trade) Dose Ordered Sig/Brissa Start Time Stop Time Status Last Admin Dose Admin Lactated Ringer's 1,000 ml @ 125 mls/hr Q8H 04/16/25 08:15 04/17/25 13:58 125 MLS/HR Witch Tamy (Tucks) 1 pad PRN PRN 04/16/25 08:15 04/17/25 12:42 1 PAD Sodium Lauryl Sulfate (Phisoderm) 240 ml PRN PRN 04/16/25 08:15 04/17/25 12:42 240 ML Benzocaine (Dermoplast) 1 applic PRN PRN 04/16/25 08:15 04/17/25 12:42 1 APPLIC Misoprostol (Cytotec) 50 mcg Q4HPRN PRN 04/16/25 08:15 04/16/25 18:34 50 MCG Lidocaine HCl (Xylocaine) 20 ml ONCE PRN 04/16/25 08:15 Oxytocin 500 ml @ 999 mls/hr Q31M ONCE 04/16/25 08:15 04/16/25 09:07 DC Oxytocin 500 ml @ 125 mls/hr Q4H ONCE 04/16/25 08:45 04/16/25 12:44 DC Naloxone HCl (Narcan) 0.2 mg PRN ONCE 04/16/25 19:30 04/16/25 19:41 DC Ephedrine Sulfate (ePHEDrine SULFATE) 10 mg PRN ONCE 04/16/25 19:30 04/16/25 19:41 DC 04/16/25 21:33 10 MG Fentanyl Citrate 100 mcg ONCE ONCE 04/16/25 19:30 04/16/25 19:41 DC 04/16/25 21:34 100 MCG Lidocaine HCl (Xylocaine-Pf 2% Injection) 10 ml ONCE ONCE 04/16/25 19:30 04/16/25 19:41 DC Lactated Ringer's 1,000 ml @ 1,000 mls/hr Q1H ONCE 04/16/25 19:30 04/16/25 20:29 DC Oxytocin 1,000 ml @ 6 ml/hr Q24H 04/16/25 21:45 04/16/25 23:07 6 ML/HR Terbutaline Sulfate (Brethine Inj) 0.25 mg ONCE PRN 04/16/25 21:45 Cefazolin Sodium 50 ml @ 100 mls/hr Q8H 04/17/25 12:30 04/17/25 16:30 DC 04/17/25 12:28 100 MLS/HR Diphenhydramine HCl (Benadryl Injection) 50 mg ONCE ONCE 04/17/25 13:30 04/17/25 13:39 DC 04/17/25 13:43 50 MG Acetaminophen (Tylenol Tablet) 975 mg ONCE STAT 04/17/25 16:25 04/17/25 16:31 DC 04/17/25 16:36 975 MG Ampicillin Sodium 2 gm/Sodium Chloride 100 ml @ 100 mls/hr Q6HR 04/17/25 18:00 04/19/25 17:59 Gentamicin Sulfate 0 ml @ 0 mls/hr PER PHARMACY 04/17/25 16:30 04/19/25 16:29 UNV Laboratory Tests Test 04/17/25 15:52 04/16/25 08:28 04/16/25 08:20 Range/Units POC Glucose 81 70-106 mg/dl White Blood Count 8.7 4.4-10.8 10^3/uL Red Blood Count 3.92 L 4.0-5.20 10^6/uL Hemoglobin 12.1 L 12.2-16.2 g/dL Hematocrit 35.5 L 36.0-46.0 % Mean Corpuscular Volume 90.6 80.0-100.0 fL Mean Corpuscular Hemoglobin 30.8 28.0-32.0 pg Mean Corpuscular Hemoglobin Concent 34.0 32.0-36.0 g/dL Red Cell Distribution Width 15.8 H 11.8-14.3 % Platelet Count 270 140-450 10^3/uL Mean Platelet Volume 8.6 6.9-10.8 fL Neutrophils (%) (Auto) 72.4 37.0-80.0 % Lymphocytes (%) (Auto) 22.1 10.0-50.0 % Monocytes (%) (Auto) 4.9 0.0-12.0 % Eosinophils (%) (Auto) 0.4 0.0-7.0 % Basophils (%) (Auto) 0.2 0.0-2.0 % Neutrophils # (Auto) 6.3 1.6-8.6 10 ^3/uL Lymphocytes # (Auto) 1.9 0.4-5.4 10 ^3/uL Monocytes # (Auto) 0.4 0-1.3 10 ^3/uL Eosinophils # (Auto) 0 0-0.8 10 ^3/uL Basophils # (Auto) 0 0-0.2 10 ^3/uL Nucleated Red Blood Cells 0.0 % Prothrombin Time 9.7 9.3-11.8 sec Prothrombin Time INR 0.91 0.9-1.15 Activated Partial Thromboplast Time 29.6 24.5-34.5 SEC Sodium Level 140 136-145 mmol/L Potassium Level 3.9 3.5-5.1 mmol/L Chloride Level 106 98-107 mmol/L Carbon Dioxide Level 21 20-31 mmol/L Anion Gap 13 5-15 Blood Urea Nitrogen 7 L 9-23 mg/dL Creatinine 0.63 0.550-1.02 mg/dL Glomerular Filtration Rate Calc 122 >90 mL/min BUN/Creatinine Ratio 11.1 10.0-20.0 Serum Glucose 88 74-106 mg/dL Calcium Level 9.3 8.7-10.4 mg/dL Total Bilirubin 0.3 0.2-1.0 mg/dL Aspartate Amino Transferase (AST) 15 13-40 U/L Alanine Aminotransferase (ALT) < 9 7-40 U/L Alkaline Phosphatase 184 H 46-116 U/L Total Protein 6.4 5.7-8.2 g/dL Albumin 3.7 3.2-4.8 g/dL Treponema pallidum Antibody Non-reactive Negative Urine Color Yellow Yellow Urine Clarity Turbid H Clear Urine pH 6.0 5.0-9.0 Urine Specific [place] 1.028 1.001-1.035 Urine Protein 1+ H Negative Urine Ketones Negative Negative Urine Blood Negative Negative /uL Urine Nitrite Negative Negative Urine Bilirubin Negative Negative Urine Urobilinogen Normal Negative mg/dL Urine Leukocyte Esterase 2+ Negative /uL Urine RBC 10 0 - 4 /hpf Urine Microscopic WBC 28 H 0-5 /HPF Urine Squamous Epithelial Cells Mod <5 /hpf Urine Bacteria Few H None Seen /hpf Urine Mucus Few None Seen Urine Glucose Normal Normal mg/dL Urine Opiates Screen Neg NEGATIVE Urine Fentanyl Screen Neg NEGATIVE Urine Barbiturates Screen Neg NEGATIVE Urine Phencyclidine Screen Neg NEGATIVE Urine Amphetamines Screen Neg NEGATIVE Urine Benzodiazepines Screen Neg NEGATIVE Urine Cocaine Screen Neg NEGATIVE Urine Cannabinoids Screen Neg NEGATIVE Plan Plan discussed with: Patient, Spouse Visit Coding OBGYN Date of Service: Apr 17, 2025 Billing Provider: MARQUITA FRANKLIN CNM BILLET HEATER Common Visit Codes: [id number] INP/OBS CARE(MOD) BILLET HEATER Procedure Codes: 80153-61- NON-STRESS TEST MARQUITA FRANKLIN CNM Apr 17, 2025 16:16
[2025-04-17] MEDS ORDERED: GENTAMICIN PER PHARMACY 0 ML IV SCH (16:30)
[2025-04-17] MEDS: ACETAMINOPHEN 325 MG TAB PO STA (16:36)
[2025-04-17] MEDS: AMPICILLIN SOD 2GM INJ 2 GM in SODIUM CHL 0.9% 100 ML IV SCH (16:56)
[2025-04-17] MEDS ORDERED: ONDANSETRON HCL 4 MG/2 ML VIAL ONE (18:10)
[2025-04-17] MEDS ORDERED: fentaNYL CITRATE 100 MCG/2 ML VL ONE (18:11)
[2025-04-17] MEDS ORDERED: LIDOCAINE 2% (LOCAL ANESTH.) PF 5ml SDV ONE (18:11)
[2025-04-17] MEDS ORDERED: MORPHINE SULF PF 5 MG/10 ML VIAL ONE (18:11)
[2025-04-17] MEDS ORDERED: ONDANSETRON HCL 4 MG/2 ML VIAL IV PRN ×2 (18:15→19:45)
[2025-04-17] MEDS: GUM (CHEWING) 1 GUM CHEW CHEW ONE (18:15)
[2025-04-17] MEDS ORDERED: HYDR-4072 PO (18:19)
[2025-04-17] MEDS ORDERED: CEPH500T PO (18:19)
[2025-04-17] MEDS ORDERED: IBUP-1456 PO (18:19)
[2025-04-17] MEDS ORDERED: DOCU-94 PO (18:19)
[2025-04-17] MEDS ORDERED: ceFAZolin 1GM VL ONE (18:21)
[2025-04-17] MEDS ORDERED: SODIUM CHLORIDE LOCK 10 ML ONE (18:38)
[2025-04-17] MEDS ORDERED: PHENYLEPHRINE HCL 10 MG/ML VL ONE (18:38)
[2025-04-17] MEDS ORDERED: TRANEXAMIC ACID 10 ML ONE (18:39)
--- NOTE | 2025-04-17 18:50 | DVHHP ---
ADMIT DATE: 04/17/2025 CHIEF COMPLAINT: Failure to progress, chorioamnionitis. HISTORY OF PRESENT ILLNESS: The patient is a 29-year-old woman presented with estimated gestational age of 39.4, admitted on 04/16/2025 for GDMA1. The patient received Cytotec followed by Pitocin; however, did not dilate past 7 cm. Remained at 0 station. Estimated weight is 88. The patient has GDMA1 and the patient started having fever and tachycardia. The patient was subsequently taken for primary secondary to failure to progress. PAST MEDICAL HISTORY: None. PAST SURGICAL HISTORY: None. SOCIAL HISTORY: None. FAMILY HISTORY: None. OBSTETRIC AND GYNECOLOGIC HISTORY: History of primary gravid, blood type A positive, Rubella immune. REVIEW OF SYSTEMS: Consistent with HPI. PHYSICAL EXAM: VITAL SIGNS: Stable, afebrile. HEENT: Within normal limits. CARDIOVASCULAR: Regular rate and rhythm. LUNGS: Clear to auscultation. BREASTS: Symmetrical. No masses. ABDOMEN: Gravid. Positive heart. Estimated rate 88. PELVIC: 7 cm, 0 station, cervix swollen. EXTREMITIES: No clubbing, cyanosis, or edema. IMPRESSION: * Intrauterine at 39 plus weeks, induction of labor. * Failed induction, GDMA1. * Chorioamnionitis. PLAN: Primary low transverse section. Informed consent obtained. Risks and complications of surgery including infection, bleeding, hematoma formation, injury to bowel or bladder or surrounding organs, possibility of DVT, pulmonary embolism, and risks of anesthesia were discussed with the patient. Options reviewed. All questions answered. The patient fully understands. She wishes to proceed with planned procedure. DO ANGLE Umana TID: [id number] RECEIPT: [id number]
--- NOTE | 2025-04-17 18:56 | DVHOP2 ---
Operative Report DATE OF OPERATION: 04/17/25 PREOPERATIVE DIAGNOSES: Term IOL FOR GDM ,FTP,NONREASSSURING FHT FETUS AT RISK,MORBID OBESITY POSTOPERATIVE DIAGNOSES: SAME,CHORIO,MECONIUM,OP,UTERINE ATONY SURGEON: Donna Gonzalez D.O./LEDA ANESTHESIOLOGIST: WINNIE MAKI TYPE OF ANESTHESIA : EPIDURAL CONSENT: The patient was informed of the risks and benefits of the procedure. The patient was informed of the risks and benefits of the procedure. These include but are not limited to , complications of anesthesia, postoperative infection, incomplete relief of symptoms, recurrence of symptoms, damage to blood vessels, nerves and tendons, deep venous thrombosis, pulmonary embolism and possible need for repeat surgery in the future. FINDINGS: Baby [B] with Apgars of [8] and [9]. Grossly normal appearing tubes and ovaries.OP,MECONIUM PROCEDURES: Primary low transverse section. PROCEDURE IN DETAIL: The patient was taken to the operating room. She already had an epidural in place. She was then placed in supine position with a leftward tilt. A Pfannenstiel skin incision was made 2 cm above the symphysis pubis. This incision was carried to the underlying layer of fascia. The fascia was nicked in the midline. The incision was extended laterally. The superior aspect of the fascial incision was grasped and elevated. The same procedure was done to the inferior aspect of the fascial incision. The rectus muscles were then in the midline. Peritoneum was identified and entered. Peritoneal incision was extended superiorly and inferiorly with good visualization of the bladder. Bladder blade was inserted. Vesicouterine peritoneum was identified and entered. Lower uterine segment was incised in a transverse fashion. The was delivered from vertex presentation. Infant was baby [B] with Apgars [8] and [9]. Placenta was then removed manually. Uterus was exteriorized and cleared of all clots and debris. The incision was repaired using 0 Vicryl in a double-layered fashion. UTERINE ATONY WAS NOTED WHICH RESPONDED TO HEMOBATE AND YXA. No bleeding was noted. Uterus was then returned to the abdomen. The gutters were cleared off all clots and debris. Peritoneum was closed using 0 Vicryl, fascia was closed using 0 Maxon, and skin was closed using rani. The patient tolerated the procedure well. She was taken to the recovery room in stable condition. ESTIMATED BLOOD LOSS: Estimated blood loss was noted to be 800 mL. Visit Coding OBGYN Date of Service: Apr 17, 2025 Billing Provider: DONNA GONZALEZ DO ROLFER Common Visit Codes: [id number] INP/OBS CARE (HIGH) ROLFER Procedure Codes: [id number] DELIVERY ONLY DONNA GONZALEZ DO Apr 17, 2025 18:56
--- NOTE | 2025-04-17 18:59 | POSTOP ---
Post-Operative Note Post-Operative Note Preop Diagnosis TERM PREG IOL FOR GDM,MORBID OBESITY,FTP Postop Diagnosis: SAME,CHORIO,OP,MECNIUM,UTERINE ATONY Operation performed PLTCS Specimen BABY BOY,APGARS 8-9,MECONIM Anesthesia: Regional Anesthesiologist: WINNIE Blood Loss(fluid mgmt) 800ML Surgeon Jaycee Figueroa Automotive Service Advisor LEDA Implant NA Complications & Mgmt NONE Date 04/17/25 Time 18:57 Visit Coding OBGYN Date of Service: Apr 17, 2025 Billing Provider: JAYCEE FIGUEROA DO ASSOCIATION EXECUTIVE Common Visit Codes: [id number] INP/OBS CARE (HIGH) ASSOCIATION EXECUTIVE Procedure Codes: [id number] DELIVERY ONLY JAYCEE FIGUEROA DO Apr 17, 2025 18:59
[2025-04-17] MEDS ORDERED: DIPHENOXYLATE W/ATROPINE 2.5 MG TAB ONE (19:21)
[2025-04-17 19:37] VITALS: PULSE 97; RESP 23; O2SAT 97
[2025-04-17] MEDS ORDERED: HYDROmorphone HCL 2 MG/ML VL/or syr IV PRN (19:45)
[2025-04-17] MEDS ORDERED: NALOXONE HCL 0.4 MG/ML VIAL IV PRN (19:45)
[2025-04-17] MEDS: DIPHENOXYLATE W/ATROPINE 2.5 MG TAB PO ONE (19:45)
[2025-04-17] MEDS ORDERED: diphenhydrAMINE HCL 50 MG/1 ML VL IV PRN (19:45)
[2025-04-17 20:00] VITALS: BP 134/89; PULSE 94; RESP 17; TEMP 98.5; O2SAT 95
[2025-04-17] MEDS: CARBOPROST TROMETHAMINE 250 MCG/1ML VIAL IM ONE (20:12)
[2025-04-17] MEDS: GENTAMICIN SULFATE 120 MG in D5W 5% 100 ML IV SCH (20:56)
[2025-04-17 21:00] VITALS: BP 139/89; PULSE 93; RESP 18; TEMP 98.7; O2SAT 95
[2025-04-17] MEDS ORDERED: ACETAMINOPHEN IV 1000 MG/100ML (10MG/ML) IV PRN (21:45)
[2025-04-17 22:00] VITALS: BP 134/89; PULSE 101; RESP 17; TEMP 99.4; O2SAT 94
[2025-04-17 23:02] VITALS: BP 139/89; PULSE 90; RESP 18; TEMP 99; O2SAT 90
[2025-04-18] VITALS (25 sets, daily range): BP systolic 100–140; BP diastolic 63–94; PULSE 79–104; RESP 15–18; TEMP 98–98.6; O2SAT 95–98
[2025-04-18 00:23] LABS: Hematocrit 38.5 % (36.0-46.0); Hemoglobin 12.3 g/dL (12.2-16.2); Mean Corpuscular Hemoglobin 30.2 pg (28.0-32.0); Mean Corpuscular Volume 94.2 fL (80.0-100.0); Nucleated Red Blood Cells % 0.0 %
--- NOTE | 2025-04-18 00:37 | DVHPN2 ---
Progress Note Date Seen: Apr 18, 2025 Subjective S: bleeding is less, eating food without issues, denies lightheaded/dizziness, pain well controlled with oral medications, no concerns with urinating, passing flatus, no BM yet, ambulating well, well vital signs Vital Sign Date Time Temp Pulse Resp B/P (MAP) Pulse Ox O2 Delivery O2 Flow Rate FiO2 04/17/25 23:02 99.0 90 18 139/89 (106) 90 99.0 04/17/25 19:37 Room Air 0 97 medications Current Medications Medications Dose Ordered Sig/Brissa Route Start Time Stop Time Status Last Admin Dose Admin Lactated Ringer's 1,000 ml @ 125 mls/hr Q8H IV 04/16/25 08:15 04/17/25 13:58 125 MLS/HR Orlin Morelos 1 pad PRN PRN TOP 04/16/25 08:15 04/17/25 12:42 1 PAD Sodium Lauryl Sulfate 240 ml PRN PRN TOP 04/16/25 08:15 04/17/25 12:42 240 ML Benzocaine 1 applic PRN PRN TOP 04/16/25 08:15 04/17/25 12:42 1 APPLIC Misoprostol 50 mcg Q4HPRN PRN PO 04/16/25 08:15 04/16/25 18:34 50 MCG Lidocaine HCl 20 ml ONCE PRN IJ 04/16/25 08:15 Oxytocin 1,000 ml @ 6 ml/hr Q24H IV 04/16/25 21:45 04/16/25 23:07 6 ML/HR Terbutaline Sulfate 0.25 mg ONCE PRN SC 04/16/25 21:45 Ampicillin Sodium 2 gm/Sodium Chloride 100 ml @ 100 mls/hr Q6HR IV 04/17/25 18:00 04/19/25 17:59 04/17/25 23:33 100 MLS/HR Gentamicin Sulfate 0 ml @ 0 mls/hr PER PHARMACY IV 04/17/25 16:30 04/19/25 16:29 Gentamicin Sulfate 120 mg/ Dextrose 103 ml @ 100 mls/hr Q8H IV 04/17/25 17:30 04/17/25 20:56 100 MLS/HR Diphenhydramine HCl 25 mg Q4HP PRN IV 04/17/25 19:45 Ondansetron HCl 4 mg Q4HP PRN IV 04/17/25 19:45 Cefazolin Sodium 50 ml @ 100 mls/hr Q8H IV 04/18/25 02:00 Acetaminophen 1,000 mg Q8HPRN PRN IV 04/17/25 21:45 04/18/25 14:01 laboratory and microbiology Laboratory Tests 04/16/25 08:28 Test 04/16/25 08:28 Range/Units Serum Glucose 88 74-106 mg/dL Objective O: VSS Chest: heart sounds normal and lung sounds clear bilaterally Abd: soft, non-tender, fundus 1-U/firm/midline, active bowel sounds, no rebound or guarding Incision: sylke dressing open to air, clean/dry/intact Ext: Non-tender, No edema, 2+ BLE DTRs Lochia: moderate See lab results Problems(with codes): (1) S/P primary low transverse Assessment/Plan A: 29yo now at 39 5/7 weeks, PPD#1 s/p primary Chorioamnionitis Rh+ Rubella Immune P: Continue post op pp care Continue amp and gent for 24 hours and follow up in two weeks Plan discussed with: Patient, Spouse Visit Coding OBGYN Date of Service: Apr 18, 2025 Billing Provider: MARQUITA FRANKLIN CNM [employer]GER Common Visit Codes: [id number] INP/OBS CARE(HIGH) MARQUITA FRANKLIN CNM Apr 18, 2025 00:37
[2025-04-18] MEDS: ceFAZolin 1GM/50ML 50 ML IV SCH (04:09)
[2025-04-18 04:31] LABS: Hematocrit 33.7 % (36.0-46.0); Hemoglobin 11.4 g/dL (12.2-16.2); Mean Corpuscular Hemoglobin 30.6 pg (28.0-32.0); Mean Corpuscular Volume 90.5 fL (80.0-100.0); Nucleated Red Blood Cells % 0.0 %
--- NOTE | 2025-04-18 06:36 | DVH ---
CHEST RADIOGRAPH Indication: OXYGEN DESATURATION Technique: Single frontal view of the chest was obtained COMPARISON: None FINDINGS: Cardiac silhouette is borderline in size. No overt pulmonary edema. Mild streaky probable atelectatic changes at the right lung base. Left lung is clear. No pleural effusions or significant pneumothorax. IMPRESSION: Mild right basilar atelectasis.
[2025-04-18] MEDS ORDERED: ACETAMINOPHEN IV 1000 MG/100ML (10MG/ML) IV PRN (11:30)
[2025-04-18] MEDS: SIMETHICONE 80 MG CHEWABLE TABLET PO SCH (11:45)
[2025-04-18] MEDS: IBUPROFEN 800 MG TAB PO PRN (12:15)
[2025-04-18] MEDS ORDERED: GENTAMICIN SULFATE 120 MG in D5W 5% 100 ML IV SCH (12:30)
[2025-04-18] MEDS: HYDROcodone-ACET 5/325MG TAB PO PRN ×2 (18:33→23:14)
[2025-04-18] MEDS: AMPICILLIN SOD 2GM INJ 2 GM in SODIUM CHL 0.9% 100 ML IV SCH (20:13)
[2025-04-18] MEDS: DOCUSATE SOD 100 MG CAP PO SCH (21:37)
[2025-04-19] VITALS (9 sets, daily range): BP systolic 108–135; BP diastolic 57–75; PULSE 82–99; RESP 16–18; TEMP 97.8–98.5; O2SAT 95–98
--- NOTE | 2025-04-19 04:13 | DVHPN2 ---
Progress Note Date Seen: Apr 19, 2025 Subjective S: > Lochia minimal. Regular diet well tolerated. > Ambulating and voiding well w/o feeling dizzy or lightheaded. > Pain relieved with oral analgesics. > Passing flatus but no BM yet. > w/o problem vital signs Vital Sign Date Time Temp Pulse Resp B/P (MAP) Pulse Ox O2 Delivery O2 Flow Rate FiO2 04/19/25 03:00 98.4 82 16 108/69 (82) 95 98.4 04/18/25 18:30 Room Air 04/18/25 07:15 2.0 04/17/25 19:37 97 Total Intake and Output 04/18/25 04/18/25 04/19/25 15:00 23:00 07:00 Output Total 350 ml 1400 ml Balance -350 ml -1400 ml medications Current Medications Medications Dose Ordered Sig/Brissa Route Start Time Stop Time Status Last Admin Dose Admin Lactated Ringer's 1,000 ml @ 125 mls/hr Q8H IV 04/16/25 08:15 04/17/25 13:58 125 MLS/HR Witch Tamy 1 pad PRN PRN TOP 04/16/25 08:15 04/17/25 12:42 1 PAD Sodium Lauryl Sulfate 240 ml PRN PRN TOP 04/16/25 08:15 04/17/25 12:42 240 ML Benzocaine 1 applic PRN PRN TOP 04/16/25 08:15 04/17/25 12:42 1 APPLIC Lidocaine HCl 20 ml ONCE PRN IJ 04/16/25 08:15 Terbutaline Sulfate 0.25 mg ONCE PRN SC 04/16/25 21:45 Cancel Diphenhydramine HCl 25 mg Q4HP PRN IV 04/17/25 19:45 Ondansetron HCl 4 mg Q4HP PRN IV 04/17/25 19:45 Docusate Sodium 100 mg Q12HR PO 04/18/25 10:00 04/18/25 21:37 100 MG Dimethicone 80 mg QID PO 04/18/25 12:00 04/18/25 21:37 80 MG Ibuprofen 800 mg Q8HP PRN PO 04/18/25 08:30 04/18/25 21:37 800 MG Acetaminophen/ Hydrocodone Bitart 1 tab Q4HPRN PRN PO 04/18/25 08:30 04/18/25 18:33 1 TAB Acetaminophen/ Hydrocodone Bitart 2 tab Q4HPRN PRN PO 04/18/25 08:30 04/18/25 23:14 2 TAB laboratory and microbiology Laboratory Tests 04/18/25 04:12 04/16/25 08:28 Test 04/16/25 08:28 Range/Units Serum Glucose 88 74-106 mg/dL Objective O: A&O x3 NAD. Afebrile, VSS Chest: heart and lung sounds normal. Breasts: Nipples intact w/o cracks or soreness Abdomen: normal BS, soft, non-tender, no rebound or guarding, fundus firm @ U- 1, Lower abdominal Incision site with Sylke dressing on, same clean, dry and intact. No edema, erythema or induration Extremities: no edema or tenderness Lochia - minimal Assessment/Plan > 29yo now > Post operative & ppd #2 s/p Primary Section doing well. > Blood Type: AB Rh: Positive > Breast feeding > Rubella Immune > Pain control with oral medications > Bowel regimen: Increase fluid intake and fiber in diet, Laxative PRN > PP BCM Plan: undecided > Discharge plan: May discharge home tomorrow if condition remains stable Plan discussed with: Patient, Spouse Visit Coding OBGYN Date of Service: Apr 19, 2025 Billing Provider: ELSA SAN CNM [employer] Common Visit Codes: [id number] INP/OBS CARE(HIGH) ELSA SAN CNM Apr 19, 2025 04:13
--- NOTE | 2025-04-19 08:01 | ECG ---
[facility] Test Date: 2025-04-18 Test Time: 09:14:33 Pat Name: BETTE TREJO Department: Room: [facility] B Gender: F Purchase Order Checker: SEEMA LAWSON : 1995 Requested By: JAYCEE GONZALEZ Order Number: [id number] Reading MD: Octavio Bedoya Measurements Intervals [place] Rate: 70 P: 33 NH: 146 QRS: 30 QRSD: 84 T: 11 QT: 370 QTc: 399 Interpretive Statements Normal sinus rhythm Electronically Signed On 04-19-2025 15:33:00 PST by Octavio Bedoya Please click the below link to view image of tracing.
[2025-04-19] MEDS: LACT. RINGERS/OXYTOCIN 20UNITS 1,000 ML IV ONE (14:49)
[2025-04-19] MEDS: NALBUPHINE HCL 10 MG/1ml INJECTION IV ONE (14:49)
[2025-04-19] MEDS: LACTATED RINGER'S 1,000 ML IV ONE (14:50)
[2025-04-19] MEDS: LIDOCAINE HCL 2 %PF INJ 10ML AMP IJ ONE (14:50)
[2025-04-19] MEDS: NALOXONE HCL 0.4 MG/ML VIAL IV ONE (14:50)
[2025-04-20 03:00] VITALS: BP 136/82; PULSE 96; RESP 18; TEMP 98.3; O2SAT 98
--- NOTE | 2025-04-20 06:26 | DVHDS2 ---
Discharge Summary Discharge Summary Date of Admission: Apr 17, 2025 Date of Discharge: Apr 20, 2025 Discharge Diagnosis: Primary Section Failed Induction of labor ,CHORIO,OP,MECNIUM,UTERINE ATONY Procedures Primary Section First Degree Lower Cervical Transverse Section Brief History: PP Note C- Section 29 y/o now Post operative & ppd # 2 s/p Primary Section doing well. Failed IOL for GDM A1 Primary C/S for FTP/ Chorioamnionitis / Meconium stained fluid Subjective Lochia minimal. Advancing Regular diet well tolerated. Ambulating and voiding well w/o feeling dizzy or lightheaded. Pain relieved with oral analgesics. Passing flatus but no BM yet. w/o problem Requests to be discharged today Was informed patient received scheduled Ibuprofen 2 hours apart from last dose as an error. No reaction noted, and patient reported no discomforts Objective Afebrile, VSS Chest: heart and lung sounds normal. Breasts: Nipples intact w/o cracks or soreness Abdomen: normal BS, soft, non-tender, no rebound or guarding, fundus firm @ Umbilicus -2, Lower abdominal Incision site with Slyke dressing clean, dry and intact. No Saturation noted on dressing No edema, erythema or induration Extremities: no edema or tenderness Lochia - minimal Labs Assessment/Plan: Blood Type: O Rh: Positive Breast feeding Rubella Immune GBS: Negative Pain control with oral medications Bowel regimen: Increase fluid intake and fiber in diet, Laxative PRN PP BCM Plan: Discharge plan: May discharge home later today if condition remains stable Discharge Disposition: Home Discharge Instructions FOR D/C SUMMARY Diet: Routine regular diet rich in fiber, protein, iron and vitamin C with adequate fluid intake. Activity: Unrestricted. Advance as tolerated. Balance activities with rest periods. No heavy lifting, pushing or straining. Pelvic rest x 6weeks Medications Current Medications Medications (Trade) Dose Ordered Sig/Brissa Route Start Time Stop Time Status Last Admin Dose Admin Lactated Ringer's 1,000 ml @ 125 mls/hr Q8H IV 04/16/25 08:15 04/17/25 13:58 125 MLS/HR Orlin Morelos (Agusto) 1 pad PRN PRN TOP 04/16/25 08:15 04/17/25 12:42 1 PAD Sodium Lauryl Sulfate (Phisoderm) 240 ml PRN PRN TOP 04/16/25 08:15 04/17/25 12:42 240 ML Benzocaine (Dermoplast) 1 applic PRN PRN TOP 04/16/25 08:15 04/17/25 12:42 1 APPLIC Lidocaine HCl (Xylocaine) 20 ml ONCE PRN IJ 04/16/25 08:15 Terbutaline Sulfate (Brethine Inj) 0.25 mg ONCE PRN SC 04/16/25 21:45 Cancel Diphenhydramine HCl (Benadryl Injection) 25 mg Q4HP PRN IV 04/17/25 19:45 Ondansetron HCl (Zofran) 4 mg Q4HP PRN IV 04/17/25 19:45 Docusate Sodium (Colace Capsule) 100 mg Q12HR PO 04/18/25 10:00 04/19/25 11:11 100 MG Dimethicone (Mylicon Tab) 80 mg QID PO 04/18/25 12:00 04/19/25 17:36 80 MG Ibuprofen (Motrin Tablet) 800 mg Q8HP PRN PO 04/18/25 08:30 04/20/25 03:05 800 MG Acetaminophen/ Hydrocodone Bitart ([place] 5/325MG Tab) 1 tab Q4HPRN PRN PO 04/18/25 08:30 04/18/25 18:33 1 TAB Acetaminophen/ Hydrocodone Bitart ([place] 5/325MG Tab) 2 tab Q4HPRN PRN PO 04/18/25 08:30 04/19/25 14:16 2 TAB Follow up Follow up with OB Provider in 1 week Medications: Ibuprofen 600mg every 6 hours as needed for pain. Continue Vitamin and iron Instructions: Post operative and self care instructions given. self care instructions given. emergency signs and symptoms including but not limited to pre-eclampsia precautions and signs of infection, PPH & of PPD reviewed with patient. Follow up with OB Provider in 1 week Discharge Care Plan Problem Pain, Risk for injury/Safety, Risk for infection Goals Pain relieved, Pain controlled Know Disease Process Initiate lifestyle change Remain free of infection Instructions Take Rx medications See pt D/C handouts Causes of fluid excess Proper handwashing Visit Coding OBGYN Date of Service: Apr 20, 2025 Billing Provider: ALISIA MANTILLA CNM [employer]BER Common Visit Codes: [id number] INP/OBS CARE (LOW) ALISIA MANTILLAMNov 2024 06:26
[2025-04-20 07:00] VITALS: BP 134/85; PULSE 82; RESP 18; TEMP 98.2; O2SAT 95
== END 2025-04-20 08:50 | disposition home or self-care (01) | DRG 540 ==
LOC: LDRP 08:05 → PREOBSVTOIN 08:08 → LDRP 04-18 06:08
PROVIDERS: ADMIT Obstetrics & Gynecology; ATTEND Obstetrics & Gynecology
PROC: 10D00Z1 Extraction of Products of Conception, Low, Open Approach (ICD-10-PCS; principal; 2025-04-17 18:19)
DX: O77.0 Labor and delivery complicated by meconium in amniotic fluid (principal); O41.1230 Chorioamnionitis, third trimester, not applicable or unspecified; O24.420 Gestational diabetes mellitus in childbirth, diet controlled; O99.214 Obesity complicating childbirth; Z37.0 Single live birth; Z3A.39 39 weeks gestation of pregnancy; O62.2 Other uterine inertia; O76 Abnormality in fetal heart rate and rhythm complicating labor and delivery; O61.9 Failed induction of labor, unspecified; E66.01 Morbid (severe) obesity due to excess calories
CPT/HCPCS: 36415; 59025; 59200; 62282; 71045; 80053; 80307; 81001; 81002; 82565; 82948; 82962; 85025; 85610; 85730; 86780; 86850; 86900; 86901; 93005; 94760; 94762; 96360; 96361; 96365; 96366; 96374; A4344; G0378; J0131; J0169; J0690; J1100; J2003; J2405; J2590; J7060